=== PATIENT | female | born 1980 | race African-American/Black ===

== ENCOUNTER 2017-10-31 20:14 | Emergency (ER) | payer OTHER ==
[2017-10-31 21:35] VITALS: BP 118/72; PULSE 89; TEMP 100.7; BMI 24.0
[2017-10-31] MEDS ORDERED: IBUPROFEN 600 MG TABLET (FP) PO ONE ×2 (22:13)
--- NOTE | 2017-10-31 22:19 | PDOC ---
History of Present Illness - General Chief Complaint: Cold Symptoms Stated Complaint: FEVER/COUGH Time Seen by Provider: 10/31/17 21:42 History Source: Patient Exam Limitations: No Limitations - History of Present Illness Initial Comments: 10/31/17 22:14 36-year-old female presents to the ED with complaints of fever, myalgia, cough, headache, and generalized weakness since yesterday. He states took Tylenol yesterday with moderate effect but symptoms continued today and so she decided come to the ER for further evaluation. patient denies medical history Timing/Duration: reports: yesterday Severity: reports: moderate Possible Cause: Yes: no prior episodes Associated Symptoms: reports: cough, fever/chills, headache, muscle aches Past History - Past Medical History Allergies/Adverse Reactions: Allergies Allergy/AdvReac Type Severity Reaction Status Date / Time No Known Allergies Allergy Unverified 05/03/14 10:38 Home Medications: Ambulatory Orders Acetaminophen [Tylenol] 325 mg PO ASDIR 10/31/17 Ibuprofen [Motrin -] 600 mg PO TID PRN #21 tablet 10/31/17 Oseltamivir Phosphate [Tamiflu -] 75 mg PO BID #10 capsule 10/31/17 COPD: No - Suicide/Smoking/Psychosocial Hx Smoking History: Never smoked Have you smoked in the past 12 months: No Information on smoking cessation initiated: No Hx Alcohol Use: No Drug/Substance Use Hx: No Substance Use Type: None Patient Lives Alone: No Lives with/in: spouse/SO Review of Systems - Review of Systems Able to Perform ROS?: Yes Constitutional: Yes: Fever HEENTM: No: Symptoms Reported Respiratory: Yes: Cough ABD/GI: No: Symptoms Reported : No: Symptoms Reported Musculoskeletal: No: Symptoms Reported Integumentary: No: Symptoms Reported Neurological: Yes: Headache *Physical Exam - Vital Signs Last Vital Signs Temp Pulse Resp BP Pulse Ox 100.7 F H 89 20 118/72 98 10/31/17 21:30 10/31/17 21:30 10/31/17 21:30 10/31/17 21:30 10/31/17 21:30 - Physical Exam General Appearance: Yes: Nourished, Appropriately Dressed. No: Apparent Distress HEENT: positive: TMs Normal, Pharynx Normal. negative: Pale Conjunctivae Neck: positive: Supple Respiratory/Chest: positive: Lungs Clear, Normal Breath Sounds. negative: Respiratory Distress, Accessory Muscle Use Cardiovascular: positive: Regular Rhythm, Regular Rate. negative: Murmur Gastrointestinal/Abdominal: positive: Soft Extremity: positive: Normal Capillary Refill. negative: Pedal Edema Integumentary: positive: Normal Color, Warm, Moist Neurologic: positive: Motor Strength 5/5 Medical Decision Making - Medical Decision Making 10/31/17 22:17 Patient with URI symptoms including fever for the past day and a half. Patient family appears to have influenza. Patient will be treated with Tamiflu and given Motrin here in the ER. Patient will be discharged home with the same. *DC/Admit/Observation/Transfer Diagnosis at time of Disposition: Influenza - Discharge Dispostion Disposition: HOME Condition at time of disposition: Good - Prescriptions Prescriptions: Ibuprofen [Motrin -] 600 mg PO TID PRN #21 tablet PRN Reason: Pain Oseltamivir Phosphate [Tamiflu -] 75 mg PO BID #10 capsule - Referrals Referrals: STAFF,NOT ON [Primary Care Provider] - - Patient Instructions Printed Discharge Instructions: DI for Influenza -- Adult Additional Instructions: Take medication as prescribed until completed and drink plenty of fluids. Take Motrin every 8 hours for fever and pain control - Post Discharge Activity
== END 2017-10-31 22:36 | disposition home or self-care (01) ==
LOC: JERFT 20:14
DX: J11.1 Influenza due to unidentified influenza virus with other respiratory manifestations (principal)
CPT/HCPCS: 99281-25

== ENCOUNTER 2018-02-24 13:08 | Emergency (ER) | payer OTHER ==
[2018-02-24 13:17] VITALS: BP 109/62; PULSE 85; TEMP 98.5; BMI 24.0
--- NOTE | 2018-02-24 13:44 | PDOC ---
History of Present Illness - General Chief Complaint: Toothache Stated Complaint: MOUTH PAIN Time Seen by Provider: 02/24/18 13:36 - History of Present Illness Initial Comments: 37-year-old female presents for evaluation of toothache 2 days. She's taken Tylenol for the pain with minimal relief. She denies any other associated symptoms. Negative Past medical history NO KNOWN DRUG ALLERGIES 02/24/18 13:39 Past History - Past Medical History Allergies/Adverse Reactions: Allergies Allergy/AdvReac Type Severity Reaction Status Date / Time No Known Allergies Allergy Verified 02/24/18 13:14 Home Medications: Ambulatory Orders Amoxicillin - [Amoxicillin 500mg Capsule -] 500 mg PO BID #30 capsule 02/24/18 COPD: No Other medical history: DENIES. - Suicide/Smoking/Psychosocial Hx Smoking History: Never smoked Have you smoked in the past 12 months: No Hx Alcohol Use: No Drug/Substance Use Hx: No Substance Use Type: None Review of Systems - Review of Systems HEENTM: Yes: Dental Problems All Other Systems: Reviewed and Negative *Physical Exam - Vital Signs Last Vital Signs Temp Pulse Resp BP Pulse Ox 98.5 F 85 19 109/62 99 02/24/18 13:14 02/24/18 13:14 02/24/18 13:14 02/24/18 13:14 02/24/18 13:14 - Physical Exam Comments: GENERAL: [The patient is awake, alert, and fully oriented, in no acute distress. ] HEAD: [Normal with no signs of trauma.] EYES: [Pupils equal, round and reactive to light, extraocular movements intact, sclera anicteric, conjunctiva clear.] ENT: [Ears normal, nares patent, oropharynx clear without exudates. Moist mucous membranes. Poor dentition. She appears to have a cavity in the lower right molar] NECK: [Normal range of motion, supple without lymphadenopathy, JVD, or masses.] LUNGS: [Breath sounds equal, clear to auscultation bilaterally. No wheezes, and no crackles.] HEART: [Regular rate and rhythm, normal S1 and S2 without murmur, rub or gallop. ] ABDOMEN: [Soft, nontender, normoactive bowel sounds. No guarding, no rebound. No masses.] EXTREMITIES: [Normal range of motion, no edema. No clubbing or cyanosis. No cords, erythema, or tenderness.] NEUROLOGICAL: [Cranial nerves II through XII grossly intact. Normal speech, normal gait.] PSYCH: [Normal mood, normal affect.] SKIN: [Warm, Dry, normal turgor, no rashes or lesions noted.] 02/24/18 13:40 *DC/Admit/Observation/Transfer Diagnosis at time of Disposition: Tooth caries - Discharge Dispostion Disposition: HOME Condition at time of disposition: Stable Decision to Admit order: No - Referrals Referrals: Syl Vila [Primary Care Provider] - - Patient Instructions Printed Discharge Instructions: DI for Tooth Decay Additional Instructions: Take antibiotics to prevent any type of infection he may continue with Tylenol as well as Motrin. Pain I recommended a number of dentists free to follow-up with for further evaluation and treatment options - Post Discharge Activity
== END 2018-02-24 13:45 | disposition home or self-care (01) ==
LOC: JERFT 13:08
DX: K02.9 Dental caries, unspecified (principal)
CPT/HCPCS: 99281-25

== ENCOUNTER 2020-07-19 16:01 | Emergency (ER) | payer OTHER ==
--- NOTE | 2020-07-19 16:05 | PDOC ---
Rapid Medical Evaluation Chief Complaint: Vaginal Bleeding Time Seen by Provider: 07/19/20 16:03 Medical Evaluation: Allergies Allergy/AdvReac Type Severity Reaction Status Date / Time No Known Allergies Allergy Verified 02/24/18 13:14 07/19/20 16:03 Pt presents for vaginal bleeding in . States LMP was 06/09. Noticed bleeding today Exam: abdomen soft, NTNR, defer pelvic Orders: labs, TVUS Pt to proceed to the ER for further evaluation Discharge Disposition - Diagnosis Vaginal bleeding affecting early - Referrals - Patient Instructions - Post Discharge Activity
[2020-07-19 16:06] VITALS: BMI 29.5
--- NOTE | 2020-07-19 17:33 | PDOC ---
History of Present Illness - General Chief Complaint: Vaginal Bleeding Stated Complaint: VAGINAL BLEEDING, Time Seen by Provider: 07/19/20 16:03 History Source: Patient - History of Present Illness Timing/Duration: reports: other (yesterday) Quality: reports: mild Past History - Medical History Allergies/Adverse Reactions: Allergies Allergy/AdvReac Type Severity Reaction Status Date / Time No Known Allergies Allergy Verified 07/19/20 16:06 Home Medications: Ambulatory Orders Amoxicillin - [Amoxicillin 500mg Capsule -] 500 mg PO BID #30 capsule 02/24/18 COPD: No - Reproductive History Is Patient Now?: Yes - Psycho-Social/Smoking History Smoking History: Never smoked Have you smoked in the past 12 months: No Information on smoking cessation initiated: No - Substance Abuse Hx (Audit-C & DAST Scrn) How often the patient has a drink containing alcohol: Never Score: In Men: 4 or > Positive; In Women: 3 or > Positive: 0 Screen Result (Pos requires Nsg. Audit-10AR): Negative In the last yr the pt used illegal drug/Rx for NonMed reason: No Score: Yes response is considered Positive: 0 Screen Result (Positive result requires Nsg. DAST-10): Negative Review of Systems - Review of Systems Constitutional: No: Chills, Fever ABD/GI: No: Nausea, Vomiting, Abdominal cramping : No: Dysuria *Physical Exam - Vital Signs Last Vital Signs Temp Pulse Resp BP Pulse Ox 98.2 F 97 H 19 126/70 99 07/19/20 16:04 07/19/20 16:04 07/19/20 16:04 07/19/20 16:04 07/19/20 16:04 - Physical Exam General Appearance: Yes: Appropriately Dressed. No: Apparent Distress HEENT: positive: Normal Voice Neck: positive: Supple Respiratory/Chest: negative: Respiratory Distress Gastrointestinal/Abdominal: positive: Soft. negative: Tender Musculoskeletal: negative: CVA Tenderness Integumentary: positive: Dry, Warm Neurologic: positive: Fully Oriented, Alert, Normal Mood/Affect Medical Decision Making - Medical Decision Making 07/19/20 17:26 39-year-old female , ~6-7 weeks by dates w/ scheduled for tomorrow, here with vaginal spotting since yesterday that worsened today. No clots, abdominal, pain, dysuria, nausea or vomiting see exam 1st trimester bleed Rule out ectopic vs spon AB vs vag bleed in nl preg -T&S -Beta -UA -US 07/19/20 19:22 Beta 489, RH +. UA and US pending. Signed out to VINCENT Garcia at this point Discharge - Discharge Information Problems reviewed: Yes Clinical Impression/Diagnosis: Vaginal bleeding affecting early Condition: Fair Disposition: HOME - Follow up/Referral Referrals: Marielle Olson FNP [Primary Care Provider] - - Patient Discharge Instructions Additional Instructions: Take your vitamins. Keep well-hydrated. Avoid tobacco and alcohol as well as illegal drugs. Make an appointment with your JOINER HELPER for reevaluation. Return to the emergency department in 2 days for repeat blood work and ultrasound. Return to the emergency department immediately for severe pain, vaginal bleeding that requires more than 2 pads per hour or for any other symptoms. Thank you very much for choosing us to provide your emergent health care needs. - Post Discharge Activity
[2020-07-19 19:19] LABS: EPI CELLS 20 /uL (0-25.1); HYALINE CASTS 3 /uL (0-3.1); PH,URINE 5.5 (5.0-8.0); URINE APPEARANCE CLEAR; URINE BACTERIA 424 /uL (0-1359); URINE BILIRUBIN NEGATIVE (NEGATIVE); URINE COLOR YELLOW; URINE GLUCOSE (UA) NEGATIVE (NEGATIVE); URINE KETONE TRACE (NEGATIVE); URINE LEUK ESTERASE NEGATIVE (NEGATIVE); URINE NITRITE NEGATIVE (NEGATIVE); URINE PROTEIN TRACE (NEGATIVE); URINE RBC 80 /uL (0-23.9); URINE UROBILINOGEN 0.2 mg/dL (0.2-1.0); URINE WBC 26 /uL (0-25.8)
[2020-07-19] MEDS ORDERED: LORazepam 2 MG/ML SDV VIAL ONE (20:34)
[2020-07-19] MEDS ORDERED: MAGNESIUM 1GM/D5W - 1 GM/100 ML IVPB IVPB ONE (20:34)
--- NOTE | 2020-07-19 21:12 | PDOC ---
*Physical Exam - Vital Signs Last Vital Signs Temp Pulse Resp BP Pulse Ox 98.2 F 97 H 19 126/70 99 07/19/20 16:04 07/19/20 16:04 07/19/20 16:04 07/19/20 16:04 07/19/20 16:04 - Physical Exam General Appearance: Yes: Appropriately Dressed. No: Apparent Distress Extremity: positive: Normal Inspection Integumentary: positive: Normal Color, Dry, Warm ED Treatment Course - ADDITIONAL ORDERS Additional order review: Laboratory Results 07/19/20 07/19/20 07/19/20 18:30 17:55 17:55 Beta HCG, Quant 489.6 Urine Color Yellow Urine Appearance Clear Urine pH 5.5 Ur Specific [place] 1.029 Urine Protein Trace Urine Glucose (UA) Negative Urine Ketones Trace H Urine Blood 3+ H Urine Nitrite Negative Urine Bilirubin Negative Urine Urobilinogen 0.2 Ur Leukocyte Esterase Negative Urine WBC (Auto) 26 Urine RBC (Auto) 80 Urine Casts (Auto) 3 U Epithel Cells (Auto) 20 Urine Bacteria (Auto) 424 Blood Type O POSITIVE Antibody Screen Negative ED Progress Note - Progress Note Progress Note: 07/19/20 21:11 Received patient from MONTSERRAT Donahue. Briefly this is a 39-year-old woman for evaluation of abdominal pain and Beta-hCG is 451 Transvaginal ultrasound pending for disposition Medical Decision Making - Medical Decision Making 07/19/20 21:10 Laboratory Tests 07/19/20 07/19/20 17:55 18:30 Beta HCG, Quant 489.6 Urine Color Yellow Urine Appearance Clear Urine pH 5.5 Ur Specific [place] 1.029 Urine Protein Trace Urine Glucose (UA) Negative Urine Ketones Trace H Urine Blood 3+ H Urine Nitrite Negative Urine Bilirubin Negative Urine Urobilinogen 0.2 Ur Leukocyte Esterase Negative Urine WBC (Auto) 26 Urine RBC (Auto) 80 Urine Casts (Auto) 3 U Epithel Cells (Auto) 20 Urine Bacteria (Auto) 424 Ultrasound is read by Dr. Ward: Fibroid uterus. Borderline thickening of the endometrial stripe measuring 1.5 cm. No intrauterine gestational sac is identified. Correlation with serial quantitative beta hCG close follow-up ultrasound is needed. Cystitis corpus luteal cyst in the right ovary measuring 2.2 cm with normal vascular flow. Left ovary was not seen. This patient's beta-hCG is below 500 I will recommend patient return to the emergency department in 2 days for repeat blood and ultrasound. I discussed the physical exam findings, ancillary test results and final diagnoses with the patient. I answered all of the patient's questions. The patient was satisfied with the care received and felt comfortable with the discharge plan and treatment plan. The patient will call their primary care physician within 24 hours to arrange follow-up and will return to the Emergency Department with any new, persistent or worsening symptoms. Portions of this note have been documented using voice recognition software. As a result, errors may occur in the pharmacy technician inpatient process. Effort has been made to correct all grammatical and pharmacy technician inpatient error, but some may have been missed which may produce sporadic inaccurate pharmacy technician inpatient or nonsensical phrases. Discharge - Discharge Information Problems reviewed: Yes Clinical Impression/Diagnosis: Vaginal bleeding affecting early Condition: Fair Disposition: HOME - Admission No - Follow up/Referral Referrals: Marielle Olson FNP [Primary Care Provider] - - Patient Discharge Instructions Additional Instructions: Take your vitamins. Keep well-hydrated. Avoid tobacco and alcohol as well as illegal drugs. Make an appointment with your PERFUME MAKER for reevaluation. Return to the emergency department in 2 days for repeat blood work and ultrasound. Return to the emergency department immediately for severe pain, vaginal bleeding that requires more than 2 pads per hour or for any other symptoms. Thank you very much for choosing us to provide your emergent health care needs. - Post Discharge Activity
[2020-07-19 21:28] VITALS: BP 101/66; PULSE 76; TEMP 98.8
== END 2020-07-19 21:45 | disposition home or self-care (01) ==
LOC: JER 16:01
PROC: 3E023NZ Introduction of Analgesics, Hypnotics, Sedatives into Muscle, Percutaneous Approach (ICD-10-PCS; principal; 2020-07-19)
DX: O26.851 Spotting complicating pregnancy, first trimester (principal); Z3A.01 Less than 8 weeks gestation of pregnancy
CPT/HCPCS: 36415; 76817-TC; 81003; 84702; 86850; 86900; 86901; 87086; 99284-25

== ENCOUNTER 2021-03-25 23:05 | Emergency (ER) | payer OTHER ==
[2021-03-25 23:13] VITALS: BMI 26.9
[2021-03-26] MEDS ORDERED: SODIUM CHLORIDE 0.9% 500 ML INFUS.BAG IV ONE (00:28)
[2021-03-26] MEDS ORDERED: ACETAMINOPHEN 1000 MG/100 ML VIAL (NON FORMULARY) IVPB ONE (00:28)
[2021-03-26] MEDS ORDERED: ACETAMINOPHEN INJECTION 100 ML IVPB ONE (00:31)
[2021-03-26 00:48] LABS: URINE APPEARANCE CLEAR; URINE BILIRUBIN NEGATIVE (NEGATIVE); URINE COLOR YELLOW; URINE GLUCOSE (UA) NEGATIVE (NEGATIVE); URINE KETONE NEGATIVE (NEGATIVE); URINE LEUK ESTERASE NEGATIVE (NEGATIVE); URINE NITRITE NEGATIVE (NEGATIVE); URINE PROTEIN NEGATIVE (NEGATIVE); URINE UROBILINOGEN 0.2 mg/dL (0.2-1.0)
[2021-03-26 00:50] LABS: HCG,QUALITATIVE URINE Negative
[2021-03-26 01:04] LABS: BASO % 0.8 % (0-2.0); EOS % 10.2 % (0-4.5); HEMATOCRIT 36.9 % (32.4-45.2); HEMOGLOBIN 11.9 GM/dL (10.7-15.3); LYMPH % 22.7 % (8-40); MCH 26.1 pg (25.7-33.7); MCHC 32.3 g/dl (32.0-36.0); MEAN CELL VOLUME 80.7 fl (80-96); MEAN PLT VOLUME 8.2 fl (7.5-11.1); MONO % 8.5 % (3.8-10.2); NEUT % 57.8 % (42.8-82.8); PLATELET COUNT 371 K/MM3 (134-434); RBC 4.57 M/mm3 (3.60-5.2); RDW 13.4 % (11.6-15.6); WHITE BLOOD COUNT 9.2 K/mm3 (4.0-10.0)
[2021-03-26] MEDS ORDERED: ONDANSETRON 4 MG/2 ML VIAL IVPUSH ONE (01:15)
[2021-03-26 01:24] LABS: CHLORIDE 107 mmol/L (98-107); SODIUM 138 mmol/L (136-145)
[2021-03-26 01:26] LABS: ALBUMIN 3.7 g/dl (3.4-5.0); ANION GAP 7 MMOL/L (8-16); BLOOD UREA NITROGEN 12.8 mg/dL (7-18); CALCIUM 9.9 mg/dL (8.5-10.1); CO2 25 mmol/L (21-32); LIPASE 74 U/L (73-393)
[2021-03-26 01:27] LABS: GLUCOSE,RANDOM 89 mg/dL (74-106)
[2021-03-26 01:29] LABS: CREATININE 0.8 mg/dL (0.55-1.3); SGOT/AST 13 U/L (15-37); SGPT/ALT 16 U/L (13-61)
[2021-03-26 01:31] LABS: BILIRUBIN,TOTAL 0.2 mg/dL (0.2-1); TOT PROT 7.2 g/dl (6.4-8.2)
[2021-03-26 01:32] LABS: ALK PHOS 54 U/L (45-117)
[2021-03-26] MEDS ORDERED: SUCRALFATE 1 GM TABLET (FP) PO ONE (02:34)
[2021-03-26] MEDS ORDERED: PANTOPRAZOLE 20 MG TABLET PO ONE ×2 (02:34→02:42)
[2021-03-26] MEDS ORDERED: ONDANSETRON 4 MG/2 ML VIAL ONE (02:35)
[2021-03-26] MEDS ORDERED: SUCRALFATE 1 GM TABLET (FP) ONE (02:42)
[2021-03-26 03:08] VITALS: BP 121/78; PULSE 88; TEMP 98.1
== END 2021-03-26 03:08 | disposition home or self-care (01) ==
LOC: JER 23:05
PROC: 3E033NZ Introduction of Analgesics, Hypnotics, Sedatives into Peripheral Vein, Percutaneous Approach (ICD-10-PCS; principal; 2021-03-26)
PROC: 3E033GC Introduction of Other Therapeutic Substance into Peripheral Vein, Percutaneous Approach (ICD-10-PCS; 2021-03-26)
DX: D25.9 Leiomyoma of uterus, unspecified (principal)
CPT/HCPCS: 36415; 76830-TC; 80053; 81003; 82550; 83690; 84484; 84703; 85025; 87081; 87086; 99285-25; J0131

== ENCOUNTER 2021-04-19 15:21 | Emergency (ER) | payer OTHER ==
[2021-04-19 15:55] VITALS: BP 131/77; PULSE 62; TEMP 98.1; BMI 26.9
[2021-04-19] MEDS ORDERED: ACETAMINOPHEN 325 MG TABLET (FP) PO ONE (16:30)
[2021-04-19] MEDS ORDERED: ACETAMINOPHEN 325 MG TABLET (FP) ONE (17:21)
== END 2021-04-19 20:40 | disposition home or self-care (01) ==
LOC: JER 15:21
DX: S13.4XXA Sprain of ligaments of cervical spine, initial encounter (principal); M54.5 Low back pain; M25.562 Pain in left knee
CPT/HCPCS: 36415; 72070-TC-FY; 72100-TC-FY; 72125-TC; 73562-TC-LT-FY; 84703; 99284-25

== ENCOUNTER 2021-08-09 23:07 | Emergency (ER) | payer OTHER ==
[2021-08-09 23:18] VITALS: TEMP 98.7; BMI 30.9
[2021-08-10] MEDS ORDERED: FAMOTIDINE 20 MG/50 ML IVPB 20 MG/50 ML MG IVPB ONE ×2 (00:16→00:45)
[2021-08-10] MEDS ORDERED: SODIUM CHLORIDE 1,000 ML IV STA (00:16)
[2021-08-10] MEDS ORDERED: ACETAMINOPHEN 1000 MG/100 ML VIAL IVPB ONE (00:16)
[2021-08-10] MEDS ORDERED: MAG HYDROX/AL HYDROX/SIMETH 30 ML UNIT-DOSE CUP PO ONE (00:18)
[2021-08-10] MEDS ORDERED: ONDANSETRON 4 MG/2 ML VIAL IVPUSH ONE (00:19)
[2021-08-10] MEDS ORDERED: ACETAMINOPHEN INJECTION 100 ML IVPB ONE (00:44)
[2021-08-10] MEDS ORDERED: MAG HYDROX/AL HYDROX/SIMETH 30 ML UNIT-DOSE CUP ONE (00:44)
[2021-08-10] MEDS ORDERED: ONDANSETRON 4 MG/2 ML VIAL ONE (00:45)
[2021-08-10 01:06] VITALS: BP 102/62; PULSE 66
[2021-08-10 01:35] LABS: BASO % 0.9 % (0-2.0); EOS % 11.7 % (0-4.5); HEMATOCRIT 36.3 % (32.4-45.2); HEMOGLOBIN 11.9 GM/dL (10.7-15.3); LYMPH % 22.3 % (8-40); MCH 26.4 pg (25.7-33.7); MCHC 32.8 g/dl (32.0-36.0); MEAN CELL VOLUME 80.5 fl (80-96); MONO % 7.6 % (3.8-10.2); NEUT % 57.5 % (42.8-82.8); PLATELET COUNT 354 10^3/uL (134-434); RBC 4.51 M/mm3 (3.60-5.2); WHITE BLOOD COUNT 9.5 K/mm3 (4.0-10.0)
[2021-08-10 01:57] LABS: CALCIUM 10.6 mg/dL (8.5-10.1); LIPASE 79 U/L (73-393)
[2021-08-10 01:58] LABS: ALBUMIN 3.5 g/dl (3.4-5.0); BLOOD UREA NITROGEN 13.4 mg/dL (7-18)
[2021-08-10 02:01] LABS: CREATININE 0.9 mg/dL (0.55-1.3)
[2021-08-10 02:03] LABS: TOT PROT 7.3 g/dl (6.4-8.2)
[2021-08-10 02:07] LABS: BILIRUBIN,TOTAL 0.2 mg/dL (0.2-1)
== END 2021-08-10 04:26 | disposition home or self-care (01) ==
LOC: JER 23:07
PROC: 3E033NZ Introduction of Analgesics, Hypnotics, Sedatives into Peripheral Vein, Percutaneous Approach (ICD-10-PCS; principal; 2021-08-10)
PROC: 3E033GC Introduction of Other Therapeutic Substance into Peripheral Vein, Percutaneous Approach (ICD-10-PCS; 2021-08-10)
PROC: 3E033GC Introduction of Other Therapeutic Substance into Peripheral Vein, Percutaneous Approach (ICD-10-PCS; 2021-08-10)
PROC: 3E0337Z Introduction of Electrolytic and Water Balance Substance into Peripheral Vein, Percutaneous Approach (ICD-10-PCS; 2021-08-10)
DX: R10.13 Epigastric pain (principal)
CPT/HCPCS: 36415; 80053; 82550; 83690; 84484; 85025; 93005; 93010; 99284-25; J0131

== ENCOUNTER 2021-10-20 07:42 | Emergency (ER) | payer OTHER ==
[2021-10-20 08:29] VITALS: BP 118/87; PULSE 94; TEMP 97.9
[2021-10-21 20:07] LABS: SARS-CoV-2 NAA Detected (Not Detected)
== END 2021-10-20 10:27 | disposition home or self-care (01) ==
LOC: JER 07:42
DX: U07.1 COVID-19 (principal)
CPT/HCPCS: 87804; 99283-25; C9803-CS; U0003; U0005

== ENCOUNTER 2022-02-28 15:50 | Emergency (ER) | payer OTHER ==
[2022-02-28 16:08] VITALS: BP 110/64; PULSE 83; TEMP 98.6; BMI 30.9
[2022-02-28] MEDS ORDERED: IBUPROFEN 600 MG TABLET (FP) PO ONE ×2 (16:58→17:28)
[2022-02-28 18:19] LABS: EOS % 12.5 % (0-4.5); HEMATOCRIT 37.1 % (32.4-45.2); HEMOGLOBIN 11.8 GM/dL (10.7-15.3); MCH 24.6 pg (25.7-33.7); MCHC 31.7 g/dl (32.0-36.0); MEAN CELL VOLUME 77.5 fl (80-96); MEAN PLT VOLUME 8.3 fl (7.5-11.1); MONO % 8.2 % (3.8-10.2); NEUT % 55.3 % (42.8-82.8); PLATELET COUNT 457 10^3/uL (134-434); RBC 4.78 M/mm3 (3.60-5.2); RDW 14.3 % (11.6-15.6); WHITE BLOOD COUNT 8.6 K/mm3 (4.0-10.0)
[2022-02-28 18:38] LABS: HCG,QUALITATIVE URINE Negative
[2022-02-28 18:39] LABS: BLOOD UREA NITROGEN 13.1 mg/dL (7-18); CALCIUM 9.7 mg/dL (8.5-10.1)
[2022-02-28 18:40] LABS: EPI CELLS 3 /uL (0-25.1); HYALINE CASTS 0 /uL (0-3.1); PH,URINE 5.5 (5.0-8.0); URINE APPEARANCE CLEAR; URINE BACTERIA 12 /uL (0-1359); URINE BILIRUBIN NEGATIVE (NEGATIVE); URINE COLOR YELLOW; URINE GLUCOSE (UA) NEGATIVE (NEGATIVE); URINE KETONE NEGATIVE (NEGATIVE); URINE LEUK ESTERASE NEGATIVE (NEGATIVE); URINE NITRITE NEGATIVE (NEGATIVE); URINE PROTEIN NEGATIVE (NEGATIVE); URINE RBC 2203 /uL (0-23.9); URINE UROBILINOGEN 0.2 mg/dL (0.2-1.0); URINE WBC 8 /uL (0-25.8)
[2022-02-28 18:43] LABS: CREATININE 0.7 mg/dL (0.55-1.3)
== END 2022-02-28 21:24 | disposition home or self-care (01) ==
LOC: JER 15:50
DX: D25.0 Submucous leiomyoma of uterus (principal); D25.1 Intramural leiomyoma of uterus
CPT/HCPCS: 36415; 76830-TC; 80048; 81003; 84703; 85025; 87086; 99284-25

== ENCOUNTER 2022-07-12 09:28 | Emergency (ER) | payer OTHER ==
[2022-07-12] MEDS ORDERED: IBUPROFEN 400 MG TABLET (FP) PO ONE ×2 (09:35→09:51)
[2022-07-12 10:21] VITALS: BP 111/76; PULSE 84; RESP 18; TEMP 98.1; BMI 31.2
== END 2022-07-12 10:40 | disposition home or self-care (01) ==
LOC: FER 09:28
DX: M54.6 Pain in thoracic spine (principal)
CPT/HCPCS: 99283-25

== ENCOUNTER 2022-08-06 10:19 | Emergency (ER) | payer OTHER ==
[2022-08-06 10:55] VITALS: TEMP 97.8; BMI 67.1
[2022-08-06] MEDS ORDERED: FAMOTIDINE 20 MG/50 ML IVPB 20 MG/50 ML MG IVPB ONE ×2 (11:00→11:38)
[2022-08-06] MEDS ORDERED: MAG HYDROX/AL HYDROX/SIMETH 30 ML UNIT-DOSE CUP PO ONE (11:00)
[2022-08-06] MEDS ORDERED: ACETAMINOPHEN 1000 MG/100 ML BAG IVPB ONE (11:00)
[2022-08-06 11:04] LABS: PH,URINE 6.5 (5.0-8.0); URINE APPEARANCE CLEAR; URINE BILIRUBIN NEGATIVE (NEGATIVE); URINE COLOR YELLOW; URINE GLUCOSE (UA) NEGATIVE (NEGATIVE); URINE KETONE NEGATIVE (NEGATIVE); URINE LEUK ESTERASE NEGATIVE (NEGATIVE); URINE NITRITE NEGATIVE (NEGATIVE); URINE PROTEIN NEGATIVE (NEGATIVE); URINE UROBILINOGEN 0.2 mg/dL (0.2-1.0)
[2022-08-06 11:07] LABS: HCG,QUALITATIVE URINE Negative
[2022-08-06] MEDS ORDERED: MAG HYDROX/AL HYDROX/SIMETH 30 ML UNIT-DOSE CUP ONE (11:36)
[2022-08-06] MEDS ORDERED: ACETAMINOPHEN INJECTION 100 ML IVPB ONE (11:37)
[2022-08-06 11:39] LABS: BASO % 0.6 % (0-2.0); EOS % 12.4 % (0-4.5); HEMATOCRIT 31.5 % (32.4-45.2); HEMOGLOBIN 10.1 GM/dL (10.7-15.3); LYMPH % 17.3 % (8-40); MCH 23.6 pg (25.7-33.7); MEAN CELL VOLUME 73.9 fl (80-96); MEAN PLT VOLUME 7.4 fl (7.5-11.1); MONO % 7.7 % (3.8-10.2); PLATELET COUNT 358 10^3/uL (134-434); RBC 4.27 M/mm3 (3.60-5.2); RDW 15.6 % (11.6-15.6); WHITE BLOOD COUNT 8.9 K/mm3 (4.0-10.0)
[2022-08-06 11:46] LABS: INR 1.02 (0.83-1.09); PROTHROMBIN TIME (PATIENT) 11.7 SEC (9.7-13.0)
[2022-08-06 12:07] LABS: CHLORIDE 110 mmol/L (98-107); SODIUM 139 mmol/L (136-145)
[2022-08-06 12:09] LABS: CALCIUM 9.1 mg/dL (8.5-10.1); GLUCOSE,RANDOM 95 mg/dL (74-106)
[2022-08-06 12:10] LABS: ALBUMIN 3.2 g/dl (3.4-5.0); ANION GAP 2 MMOL/L (8-16); CO2 27 mmol/L (21-32)
[2022-08-06 12:14] LABS: CREATININE 0.7 mg/dL (0.55-1.3); SGOT/AST 14 U/L (15-37); SGPT/ALT 31 U/L (13-61)
[2022-08-06 12:15] LABS: BILIRUBIN,TOTAL 0.2 mg/dL (0.2-1); TOT PROT 6.3 g/dl (6.4-8.2)
[2022-08-06 12:16] LABS: ALK PHOS 53 U/L (45-117)
[2022-08-06 12:59] VITALS: BP 120/73
[2022-08-06 13:56] VITALS: PULSE 56; RESP 18
== END 2022-08-06 16:03 | disposition home or self-care (01) ==
LOC: JER 10:19
PROC: 3E033GC Introduction of Other Therapeutic Substance into Peripheral Vein, Percutaneous Approach (ICD-10-PCS; principal; 2022-08-06)
DX: R07.9 Chest pain, unspecified (principal)
CPT/HCPCS: 36415; 71045-TC-FY; 71275-TC; 74174-TC; 80053; 81003; 82550; 83690; 84484; 84703; 85025; 85610; 85730; 87086; 93005; 93010; 99285-25; Q9967

== ENCOUNTER 2023-04-25 08:05 | Emergency (ER) | payer OTHER ==
[2023-04-25 08:27] VITALS: BP 113/76; PULSE 81; RESP 20; TEMP 98.9; BMI 30.5
[2023-04-25] MEDS ORDERED: FAMOTIDINE 20 MG TABLET PO ONE (08:31)
[2023-04-25] MEDS ORDERED: KETOROLAC TROMETHAMINE 60 MG/2 ML VIAL IM ONE (08:32)
[2023-04-25] MEDS ORDERED: KETOROLAC TROMETHAMINE 60 MG/2 ML VIAL ONE (08:51)
[2023-04-25] MEDS ORDERED: FAMOTIDINE 20 MG TABLET ONE (08:52)
== END 2023-04-25 10:45 | disposition home or self-care (01) ==
LOC: FER 08:05
PROC: 3E0233Z Introduction of Anti-inflammatory into Muscle, Percutaneous Approach (ICD-10-PCS; principal; 2023-04-25)
DX: M25.512 Pain in left shoulder (principal); M75.02 Adhesive capsulitis of left shoulder
CPT/HCPCS: 73030-TC-LT-FY; 99284-25

== ENCOUNTER 2024-02-07 01:51 | Emergency (ER) | payer OTHER ==
[2024-02-07 02:06] VITALS: RESP 18; BMI 28.1
[2024-02-07] MEDS ORDERED: METHOCARBAMOL 500 MG TABLET ONE (03:57)
[2024-02-07] MEDS ORDERED: LIDOCAINE 4% PATCH TP ONE (03:57)
[2024-02-07] MEDS: METHOCARBAMOL 500 MG TABLET PO ONE (04:02)
[2024-02-07] MEDS: LIDOCAINE 5% TOPICAL PATCH TP ONE (04:02)
[2024-02-07 05:58] VITALS: BP 101/71; PULSE 56; TEMP 97.1
== END 2024-02-07 06:17 | disposition home or self-care (01) ==
LOC: JER 01:51
DX: R52 Pain, unspecified (principal); V49.40XA Driver injured in collision with unspecified motor vehicles in traffic accident, initial encounter; Y92.410 Unspecified street and highway as the place of occurrence of the external cause; Z20.822 Contact with and (suspected) exposure to COVID-19
CPT/HCPCS: 0241U-QW; 93005; 93010; 99284-25